=== PATIENT | male | born 1960 | race Caucasian/White ===

== ENCOUNTER → 2016-09-24 | Outpatient (CLI) | payer OTHER ==
--- NOTE | 2016-09-24 21:46 | EKG REPORT ---
SEVERITY:- BORDERLINE ECG - SINUS RHYTHM BORDERLINE T WAVE ABNORMALITIES : Confirmed by: Magalys Nichols 24-Sep-2016 21:46:01
== END ==
LOC: OD 14:29
DX: I48.91 Unspecified atrial fibrillation (principal)
CPT/HCPCS: 93005; 93010

== ENCOUNTER → 2018-01-21 | Outpatient (CLI) | payer OTHER ==
[2018-01-21 16:00] LABS: ALANINE AMINOTRANSFERASE 31 U/L (21-72); ALBUMIN 4.4 g/dL (3.5-5.0); ALKALINE PHOSPHATASE 68 U/L (38-126); ANION GAP 11 (5-19); ASPARTATE AMINO TRANSFERASE 23 U/L (17-59); BILIRUBIN,DIRECT 0.2 mg/dL (0.0-0.4); BILIRUBIN,TOTAL 0.7 mg/dL (0.2-1.3); BLOOD UREA NITROGEN 9 mg/dL (7-20); CALCIUM 9.9 mg/dL (8.4-10.2); CARBON DIOXIDE 27 mmol/L (22-30); CHLORIDE 106 mmol/L (98-107); CHOLESTEROL 169.47 mg/dL (0-200); GLUCOSE 73 mg/dL (75-110); POTASSIUM 4.4 mmol/L (3.6-5.0); SODIUM 144.3 mmol/L (137-145); TOTAL PROTEIN 7.4 g/dL (6.3-8.2); TRIGLYCERIDES 90 mg/dL (<150)
[2018-01-21 16:13] LABS: DIRECT LDL 77 mg/dL (<100)
[2018-01-21 16:23] LABS: FREE T3 5.1 pg/mL (2.77-5.27); FREE T4 (FREE THYROXINE) 1.06 ng/dL (0.78-2.19)
[2018-01-21 16:37] LABS: THYROID STIMULATING HORMONE 3.07 uIU/mL (0.47-4.68)
== END ==
LOC: CCC 14:52
DX: I48.2 Chronic atrial fibrillation (principal)
CPT/HCPCS: 36415; 80053; 80061; 84439; 84443; 84481

== ENCOUNTER → 2018-02-04 | Outpatient (CLI) | payer OTHER ==
--- NOTE | 2018-02-04 14:06 | RADIOLOGY REPORT (SQ) ---
EXAM DESCRIPTION: KNEE RIGHT 3 VIEWS COMPLETED DATE/TIME: 02/04/2018 12:38 pm REASON FOR STUDY: UNILATERAL PRIMARY OSTEOARTHRITIS, RIGHT KNEE M17.11 UNILATERAL PRIMARY OSTEOARTH RITIS, RIGHT KNEE pain COMPARISON: None. NUMBER OF VIEWS: Three views. TECHNIQUE: AP, lateral, and sunrise patella radiographic images acquired of the right knee. LIMITATIONS: None. FINDINGS: MINERALIZATION: Normal. BONES: No acute fracture or dislocation. No worrisome bone lesions. JOINT: No effusion. SOFT TISSUES: No soft tissue swelling. No radio-opaque foreign body. OTHER: No other significant finding. IMPRESSION: NEGATIVE STUDY OF THE RIGHT KNEE. NO RADIOGRAPHIC EVIDENCE OF ACUTE INJURY. TECHNICAL DOCUMENTATION: JOB ID: [id number] [employer]- All Rights Reserved Reading location - IP/workstation name: [email or web address]
== END ==
LOC: RAD 12:16
DX: M17.11 Unilateral primary osteoarthritis, right knee (principal)

== ENCOUNTER → 2018-08-07 | Outpatient (CLI) | payer OTHER ==
--- NOTE | 2018-08-07 14:21 | RADIOLOGY REPORT (SQ) ---
EXAM DESCRIPTION: CHEST PA/LATERAL COMPLETED DATE/TIME: 08/07/2018 1:37 pm REASON FOR STUDY: GENERALIZED HYPERHIDROSIS;NIGHT SWEATS COMPARISON: 06/09/2016 EXAM PARAMETERS: NUMBER OF VIEWS: two views TECHNIQUE: Digital Frontal and Lateral radiographic views of the chest acquired. RADIATION DOSE: NA LIMITATIONS: none FINDINGS: LUNGS AND PLEURA: No opacities, masses or pneumothorax. No pleural effusion. MEDIASTINUM AND HILAR STRUCTURES: No masses or contour abnormalities. HEART AND VASCULAR STRUCTURES: Heart normal size. No evidence for failure. BONES: No acute findings. HARDWARE: None in the chest. OTHER: No other significant finding. IMPRESSION: NO SIGNIFICANT RADIOGRAPHIC FINDING IN THE CHEST. TECHNICAL DOCUMENTATION: JOB ID: [id number] [employer]- All Rights Reserved Reading location - IP/workstation name: [email or web address]
[2018-08-07 14:49] LABS: POTASSIUM 4.3 mmol/L (3.6-5.0); SODIUM 137.9 mmol/L (137-145)
== END ==
LOC: CCC 13:18
DX: I48.91 Unspecified atrial fibrillation (principal); R61 Generalized hyperhidrosis
CPT/HCPCS: 36415; 71046; 80051; 84436; 84443

== ENCOUNTER 2020-08-27 09:09 | Emergency (ER) | payer SELFPAY ==
[2020-08-27] MEDS ORDERED: ASPIRIN 81 MG TABLET, CHEWABLE PO ONE (09:54)
[2020-08-27] MEDS ORDERED: ASPIRIN 81 MG TABLET, CHEWABLE ONE (09:55)
[2020-08-27 10:30] LABS: ALBUMIN 4.3 g/dL (3.5-5.0); ALKALINE PHOSPHATASE 68 U/L (38-126); ANION GAP 9 (5-19); ASPARTATE AMINO TRANSFERASE 24 U/L (17-59); BILIRUBIN,DIRECT 0.2 mg/dL (0.0-0.4); BLOOD UREA NITROGEN 14 mg/dL (7-20); CALCIUM 9.7 mg/dL (8.4-10.2); CARBON DIOXIDE 25 mmol/L (22-30); CHLORIDE 107 mmol/L (98-107); CREATINE KINASE 75 U/L (55-170); GLUCOSE 137 mg/dL (75-110); POTASSIUM 4.8 mmol/L (3.6-5.0); TOTAL PROTEIN 7.8 g/dL (6.3-8.2)
--- NOTE | 2020-08-27 10:36 | ER Document Report ---
Entered by FREDERICK BRICEÑO SCRIBE 08/27/20 0952 Acting as scribe for:VAISHALI CRISTOBAL MD ED General - General Chief Complaint: Chest Pain Stated Complaint: CHEST PAIN,LIGHTHEADED Time Seen by Provider: 08/27/20 09:38 Mode of Arrival: Ambulatory Information source: Patient Notes: This 60-year-old male patient presents to the emergency department today with complaints of an elevated heart rate this morning. Patient reports that he also developed some chest pain and lightheadedness then he felt like he was going to pass out. Patient states he has had A. fib in the past and it felt identical to this. He has been on medications for atrial fibrillation for the last year. TRAVEL OUTSIDE OF THE [place] IN LAST 30 DAYS: No - Related Data Allergies/Adverse Reactions: No Known Allergies Allergy (Verified 08/27/20 09:27) Past Medical History - General Information source: Patient - Social History Smoking Status: Former Smoker Cigarette use (# per day): No Drug Abuse: Marijuana Family History: Hypertension - Past Medical History Cardiac Medical History: Reports: Hx Atrial Fibrillation Past Surgical History: Reports: Hx Orthopedic Surgery - neck and back surgery - Immunizations Hx Diphtheria, Pertussis, Tetanus Vaccination: No Review of Systems - Review of Systems Constitutional: No symptoms reported EENT: No symptoms reported Cardiovascular: See HPI, Chest pain, Palpitations, Heart racing, Syncope - near, Lightheaded Respiratory: No symptoms reported Gastrointestinal: No symptoms reported Genitourinary: No symptoms reported Male Genitourinary: No symptoms reported Musculoskeletal: No symptoms reported Skin: No symptoms reported Hematologic/Lymphatic: No symptoms reported Neurological/Psychological: No symptoms reported -: Yes All other systems reviewed and negative Physical Exam - Vital signs Vitals: Temp Pulse Resp BP Pulse Ox 98.1 F 79 22 H 115/90 H 100 08/27/20 09:23 08/27/20 09:23 08/27/20 09:23 08/27/20 09:23 08/27/20 09:23 - Notes Notes: Physical Exam: General: Alert, appears well. HEENT: Normocephalic. Atraumatic. PERRL. Extraocular movements intact. Oropharynx clear. Neck: Supple. Non-tender. Respiratory: No respiratory distress. Clear and equal breath sounds bilaterally. Cardiovascular: Regular rate and rhythm. Abdominal: Normal Inspection. Non-tender. No distension. Normal Bowel Sounds. Back: No gross abnormalities. Extremities: Moves all four extremities. Upper extremities: Normal inspection. Normal ROM. Lower extremities: Normal inspection. No edema. Normal ROM. Neurological: Normal cognition. AAOx4. Normal speech. Psychological: Normal affect. Normal Mood. Skin: Warm. Dry. Normal color. Course - Re-evaluation Re-evalutation: 08/27/20 13:30 The patient was seen here and 2016 with Bud peres RVR. He was ultimately discharged on Cardizem CD 120 BID. He was also taking 2 baby aspirin daily. On that visit his blood pressure remained around 100 systolic the entire time. Today his blood pressure is similarly in the 100-1 05 systolic range. He remains in normal sinus rhythm and has 2 - troponins. He will be discharged on the Cardizem CD which he was able to take successfully for a few years until he ran out. He will resume taking 2 baby aspirin a day. He will follow up with a local primary care provider as I have cautioned him that he is not getting any younger and the atrial fibrillation is something that should be monitored. - Vital Signs Vital signs: Temp Pulse Resp BP Pulse Ox 98.1 F 79 18 103/68 94 08/27/20 09:23 08/27/20 09:23 08/27/20 13:01 08/27/20 13:01 08/27/20 13:01 - Laboratory Results Result Diagrams: 08/27/20 09:51 08/27/20 09:51 Laboratory Results Interpreted: 08/27/20 08/27/20 08/27/20 09:51 09:51 12:30 RBC 5.74 H Glucose 137 H Urine Protein 30 H Critical Laboratory Results Reviewed: No Critical Results - Radiology Results Critical Radiology Results Reviewed: No Critical Results - EKG Interpretation by Id EKG shows normal: [place], Intervals, QRS Complexes. abnormal: ST-T Waves - Rate related repolarization abnormality Rate: Tachycardia - 168 Rhythm: A.Fib Additional EKG results interpreted by dc: 08/27/20 10:37 Repeat EKG done shows patient in normal sinus rhythm with a normal EKG. Discharge - Discharge Clinical Impression: Atrial fibrillation with RVR Condition: Stable Disposition: HOME, SELF-CARE Additional Instructions: Atrial Fibrillation Atrial fibrillation is an abnormal heart rhythm, caused by irregular electrical circuits in the upper heart chamber. It can be caused by heart valve disease, hardening of the arteries, or metabolic problems such as thyroid disease, or may occur without a clear cause. Atrial fibrillation may occur only occasionally, or may be chronic. Atrial fibrillation often results in a very fast heart rate, with palpi tations, lightheadedness, and shortness of breath. Treatment is to slow the abnormally fast rate, and to convert the rhythm back to normal, if possible. Many patients stay in atrial fibrillation for years without symptoms or complications. Your doctor will decide whether you can be converted back to a normal heart rhythm. Contact the doctor or emergency medical system at once if you develop chest pain, shortness of breath, or severe lightheadedness, or if you develop any disturbance of consciousness, problems with speech, or localized weakness. Take the Cardizem CD as prescribed just as you did in the past. Take 2 baby aspirin once daily just as you did in the past. Follow-up with a local primary care provider to manage your medications and any other medical problems that may develop in the future. RETURN TO THE EMERGENCY ROOM IF ANY NEW OR WORSENING SYMPTOMS. Prescriptions: Diltiazem HCl [Cardizem Cd 120 mg Capsule] 120 mg PO BID #60 cap.sr.24h I personally performed the services described in the documentation, reviewed and edited the documentation which was dictated to the scribe in my presence, and it accurately records my words and actions.
[2020-08-27 10:39] LABS: ABSOLUTE EOSINOPHILS # (AUTO) 0.1 10^3/uL (0.0-0.6); TOTAL CELLS COUNTED % (AUTO) 100 %
[2020-08-27 10:42] LABS: TROPONIN I < 0.012 ng/mL
[2020-08-27 10:46] LABS: ABSOLUTE LYMPHOCYTES (AUTO) 1.8 10^3/uL (0.5-4.7); ABSOLUTE MONOCYTES (AUTO) 0.4 10^3/uL (0.1-1.4); ABSOLUTE NEUT (AUTO) 3.8 10^3/uL (1.7-8.2); BASOPHILS % (AUTO) 0.6 % (0-2); EOSINOPHILS % (AUTO) 1.5 % (0-6); HEMATOCRIT 49.9 % (37.9-51.0); HEMOGLOBIN 16.6 g/dL (13.5-17.0); LYMPHOCYTES % (AUTO) 28.9 % (13-45); MEAN CORPUSCULAR HEMOGLOBIN 28.9 pg (27.0-33.4); MEAN CORPUSCULAR HGB CONC 33.2 g/dL (32.0-36.0); MEAN CORPUSCULAR VOLUME 87 fl (80-97); MONOCYTES % (AUTO) 7.2 % (3-13); PLATELET COUNT 338 10^3/uL (150-450); RED BLOOD COUNT 5.74 10^6/uL (4.35-5.55); SEGMENTED NEUTROPHILS % (AUTO) 61.8 % (42-78); WHITE BLOOD COUNT 6.1 10^3/uL (4.0-10.5)
--- NOTE | 2020-08-27 11:37 | EKG REPORT ---
SEVERITY:- NORMAL ECG - SINUS RHYTHM : Confirmed by: Sofie Wolff MD 27-Aug-2020 11:37:23
--- NOTE | 2020-08-27 11:39 | EKG REPORT ---
SEVERITY:- ABNORMAL ECG - ATRIAL FIBRILLATION WITH RAPID V-RATE REPOLARIZATION ABNORMALITY, PROB RATE RELATED : Confirmed by: Sofie Wolff MD 27-Aug-2020 11:37:49
[2020-08-27 13:08] LABS: APPEARANCE,URINE CLEAR; BILIRUBIN,URINE NEGATIVE (NEGATIVE); COLOR,URINE YELLOW; GLUCOSE, URINE NEGATIVE (NEGATIVE); KETONES,URINE NEGATIVE (NEGATIVE); LEUKOCYTE ESTERASE,URINE NEGATIVE (NEGATIVE); NITRITE,URINE NEGATIVE (NEGATIVE); PROTEIN,URINE 30 mg/dL (NEGATIVE); UROBILINOGEN,URINE NEGATIVE mg/dL (<2.0)
[2020-08-27] MEDS ORDERED: DILTIAZEM HCL 120 MG CAP.SR.24H PO ONE (13:34)
[2020-08-27 13:53] VITALS: BP 103/68
== END 2020-08-27 13:53 | disposition home or self-care (01) ==
LOC: ER 09:09
DX: I48.91 Unspecified atrial fibrillation (principal); R07.9 Chest pain, unspecified; R42 Dizziness and giddiness
CPT/HCPCS: 36415; 80053; 81001; 82550; 82553; 84484; 85025; 93005; 93010; 99284